=== PATIENT | female | born 1995 ===

== ENCOUNTER 2022-12-29 11:37 | Emergency (ER) | payer SELFPAY ==
[~2022-12-29] VITALS: Ht 157.5 cm; Wt 74.2 kg
[2022-12-29 11:56] VITALS: BP 119/76
[2022-12-29] MEDS ORDERED: CefTRIAXone 1000mg IM Kit (w/lidocaine diluent) IM STA (13:56)
[2022-12-29] MEDS ORDERED: DOXYCYCLINE 100MG CAPSULE PO STA (13:56)
[2022-12-29] MEDS ORDERED: CefTRIAXone 500MG IM Kit w/LIDOcaine IM STA (13:58)
[2022-12-29] MEDS ORDERED: DOXY-356 PO (14:36)
== END 2022-12-29 14:51 | disposition home or self-care (01) ==
LOC: ER 11:38
DX: T19.3XXA Foreign body in uterus, initial encounter (principal); X58.XXXA Exposure to other specified factors, initial encounter; Y93.89 Activity, other specified; Y92.89 Other specified places as the place of occurrence of the external cause; Y99.8 Other external cause status
CPT/HCPCS: 36415; 87491; 87591; 96372; 99284; J0696; 99283